=== PATIENT | female | born 1950 | race Caucasian/White ===

== ENCOUNTER 2021-12-10 08:25 | Outpatient (CLI) | payer MEDICARE, BC, SELFPAY ==
--- OUTSIDE RECORDS SUMMARY | 2021-12-02 09:43 | XMS_ITS | Continuity of Care Document ---
:1950 Author Allergies, Adverse Reactions, Alerts No known allergies Social History Smoking Status Unknown if ever smoked Additional Data Assigned Sex Female Medications No known medications Immunizations Immunization Event Date Not Given Dose Freight Unloader Lot Vac cine Reason Number Number Informatio n Statement (VIS) Deta il COVID-19 Pfizer July 09 PFIZER-BIO [id number] 2020 COVID-19 Pfizer August 18 PFIZER-BIONTECH [id number] 2020 Insurance Providers Guarantor Giovana Ch Address [address] [address] Contact Info. Home Phone: Payer Policy Id Coverage Id Subscriber's Subscriber Id Effective E xpiration Name Date Date Medicare [id number] Dima, [address] [place] [id number] Dima, [id number] Giovana Mckeon
== END 2021-12-10 08:26 | disposition home or self-care (01) ==
LOC: INJ CL 08:27
PROVIDERS: PCP Family Medicine; Visit Provider Family Medicine
DX: M54.16 Radiculopathy, lumbar region (principal); M51.36 Other intervertebral disc degeneration, lumbar region
CPT/HCPCS: 62323; J0702; Q9966

== ENCOUNTER 2022-04-22 09:45 | Outpatient (CLI) | payer MEDICARE, BC, SELFPAY | END 2022-04-22 09:46 | disposition home or self-care (01) | LOC: INJ CL 09:45 | PROVIDERS: PCP Family Medicine; Visit Provider Family Medicine | DX: M53.3 Sacrococcygeal disorders, not elsewhere classified (principal) | CPT/HCPCS: 27096; J0702; Q9966 ==

== ENCOUNTER 2022-08-12 09:05 | Outpatient (CLI) | payer MEDICARE, BC, SELFPAY | END 2022-08-12 09:06 | disposition home or self-care (01) | LOC: INJ CL 09:07 | PROVIDERS: PCP Family Medicine; Visit Provider Family Medicine | DX: M53.3 Sacrococcygeal disorders, not elsewhere classified (principal); M79.18 Myalgia, other site | CPT/HCPCS: 20552; 27096; J0702; Q9966 ==

== ENCOUNTER 2024-04-12 10:27 | Outpatient (CLI) | payer MEDICARE, BC, SELFPAY | END 2024-04-12 10:28 | disposition home or self-care (01) | LOC: INJ CL 10:30 | PROVIDERS: PCP Family Medicine; Visit Provider Family Medicine | DX: M53.3 Sacrococcygeal disorders, not elsewhere classified (principal) | CPT/HCPCS: 27096; J0702; Q9966 ==